=== PATIENT | male | born 1960 | race Caucasian/White ===

== ENCOUNTER 2018-09-23 11:29 | Outpatient (CLI) | payer BC, SELFPAY ==
[2018-09-23 13:19] LABS: Cholesterol 235 mg/dL (50-200); HDL Cholesterol 68 mg/dL (40-60); LDL CHOLESTEROL 144 mg/dL (<100); Triglyceride 110 mg/dL (30-150)
[2018-09-26 09:36] LABS: PSA, Screening 1.1 ng/ml (0-3.5)
== END 2018-09-23 11:49 ==
PROVIDERS: PCP Emergency Medicine; Visit Provider Emergency Medicine
DX: Z00.00 Encounter for general adult medical examination without abnormal findings (principal); Z12.5 Encounter for screening for malignant neoplasm of prostate; Z13.220 Encounter for screening for lipoid disorders
CPT/HCPCS: 36415; 80061; 83721; 84153

== ENCOUNTER 2018-10-04 10:45 | Outpatient (CLI) | payer BC, SELFPAY ==
--- NOTE | 2018-10-04 10:53 | DI.RAD_ITS ---
SYMPTOMS/DIAGNOSIS: BACK PAIN, SPONDYLOSIS LUMBOSACRAL JOINT W/O MYELOPATHY, M54.5, M47.817 THORACIC SPINE: Comparison is made with chest x-ray dated 7May14. There is no evidence of compression fractures. There are minimal endplate osteophytes in the mid and lower thoracic spine. There is no scoliosis. The heart size is normal. The visualized portions of the lungs are clear. IMPRESSION: Mild degenerative changes. LUMBAR SPINE: There is no evidence of compression fracture. There are small endplate osteophytes. The disc spaces are well maintained. No spondylolysis or spondylolisthesis is seen. IMPRESSION: Mild degenerative changes.
== END 2018-10-04 11:05 ==
PROVIDERS: PCP Emergency Medicine; Visit Provider Emergency Medicine
DX: M54.6 Pain in thoracic spine (principal); M54.5 Low back pain; M47.815 Spondylosis without myelopathy or radiculopathy, thoracolumbar region
CPT/HCPCS: 72072; 72110

== ENCOUNTER 2019-01-27 11:03 | Outpatient (CLI) | payer BC, SELFPAY ==
[2019-01-27 11:30] LABS: Abs Immature Grans 0.01 k/cumm (0.0-0.09); Absolute Basophil Count 0.03 k/cumm (0.0-0.2); Absolute Eosinophil Count 0.06 k/cumm (0.0-0.7); Absolute Lymphocyte Count 2.26 k/cumm (1.2-3.4); Absolute Monocyte Count 0.58 k/cumm (0.11-0.7); Absolute Neutrophil Count 6.62 k/cumm (1.2-6.7); Basophils % 0.3; Eosinophils % 0.6; HCT 44.4 % (40.0-50.0); HGB 14.8 g/dL (13.5-17.5); Immature Grans % 0.1; Lymphocytes % 23.6; Mean Corp. HGB Concentration 33.3 g/dL (32.0-36.0); Mean Corpuscular Hemoglobin 29.2 pg (27.0-33.0); Mean Corpuscular Volume 87.6 fL (80-95); Monocytes % 6.1; Neutrophils % 69.3; Platelet Count 359 x1000/uL (130-400); RBC 5.07 m/cumm (4.50-6.00); White Blood Cell Count 9.56 k/cumm (4.4-10.8)
[2019-01-27 12:12] LABS: ESR 7 MM/HR (1-20)
[2019-01-27 12:26] LABS: ALT 42 U/L (12-78); AST 49 U/L (15-37); Albumin 2.8 g/dL (3.4-5.0); Alkaline Phosphatase 70 U/L (46-116); Anion Gap 7.3 mmol/L (3-11); BUN 16 mg/dL (7-18); Bilirubin, Total 0.4 mg/dL (0.2-1.0); C-Reactive Protein 0.35 mg/dL (0.0-0.3); CO2 29.7 mmol/L (21.0-32.0); CREATININE 1.04 mg/dL (0.70-1.30); Calcium 9.1 mg/dL (8.5-10.1); Chloride 100 mmol/L (98-107); Glucose 107 mg/dL (70-100); Potassium 4.2 mmol/L (3.5-5.1); Sodium 137 mmol/L (136-145); Total Protein 7.3 g/dL (6.4-8.2)
[2019-01-30 09:17] LABS: Cyclic Citrullinated Peptide <2.5 U/mL (<5.0)
[2019-01-31 16:05] LABS: HLA-B27 Result Negative
== END 2019-01-27 11:23 ==
PROVIDERS: PCP Emergency Medicine; Visit Provider Emergency Medicine
DX: M89.9 Disorder of bone, unspecified (principal)
CPT/HCPCS: 36415; 80053; 85652; 86200; 86812; 85025; 86140

== ENCOUNTER 2019-01-27 13:26 | Outpatient (CLI) | payer BC, SELFPAY ==
--- NOTE | 2019-01-27 11:57 | DI.RAD_ITS ---
SYMPTOMS/DIAGNOSIS: PELVIC GIRDLE PAIN, M89.9 PELVIC AND BILATERAL HIPS: The hip joint spaces are well maintained. There is no significant acetabular spurring. The SI joints and pubic symphysis are unremarkable. A phlebolith is incidentally noted in the left lower pelvis. IMPRESSION: Negative pelvis and bilateral hips. SACROILIAC JOINTS: The SI joints appear normal bilaterally. There are no bony erosions or spurring. IMPRESSION: Negative SI joints.
== END 2019-01-27 13:46 ==
PROVIDERS: PCP Emergency Medicine; Visit Provider Emergency Medicine
DX: M89.9 Disorder of bone, unspecified (principal); R10.2 Pelvic and perineal pain; M53.3 Sacrococcygeal disorders, not elsewhere classified
CPT/HCPCS: 73521; 72202

== ENCOUNTER 2019-01-31 10:40 | Outpatient (CLI) | payer BC, SELFPAY ==
[2019-01-31 12:49] LABS: ALT 39 U/L (12-78); AST 30 U/L (15-37); Alkaline Phosphatase 72 U/L (46-116); Anion Gap 9.6 mmol/L (3-11); BUN 17 mg/dL (7-18); Bilirubin, Total 0.4 mg/dL (0.2-1.0); CO2 27.4 mmol/L (21.0-32.0); CREATININE 0.91 mg/dL (0.70-1.30); Calcium 9.2 mg/dL (8.5-10.1); Chloride 103 mmol/L (98-107); Glucose 102 mg/dL (70-100); Potassium 4.3 mmol/L (3.5-5.1); Sodium 140 mmol/L (136-145); Total Protein 7.1 g/dL (6.4-8.2)
[2019-01-31 13:26] LABS: Bilirubin Negative (Negative); Blood Negative (Negative); Clarity Clear; Glucose Negative (Negative); Ketones Trace mg/dL (Negative); Leukocyte Esterase Negative (Negative); Nitrite Negative (Negative); Specific Gravity >= 1.030 (1.005-1.025); Urobilinogen 0.2 EU/dL (Up TO 0.2); pH 6.5 (5-8)
[2019-01-31 14:00] LABS: Bacteria Negative HPF (Negative); C & S Indicated? No; Casts Negative LPF (Negative); Crystals Few Calcium Oxalate HPF (Negative); Epithelial Cells Negative HPF (Negative); Mucus Negative (Negative); RBC 0-2 (0-2); WBC 0-2 HPF (0-5)
[2019-01-31 15:04] LABS: ESR 11 MM/HR (1-20)
[2019-02-01 12:42] LABS: Albumin 60.8 % (55.8-66.1); Total Protein 6.9 g/dl (6.3-8.2)
== END 2019-01-31 11:00 ==
PROVIDERS: PCP Emergency Medicine; Visit Provider Emergency Medicine
DX: M54.5 Low back pain (principal); R07.1 Chest pain on breathing; R30.0 Dysuria
CPT/HCPCS: 36415; 80053; 85652; 81003; 81015; 84165

== ENCOUNTER 2019-09-29 07:00 | Outpatient (CLI) | payer BC, SELFPAY ==
[2019-09-29 12:48] LABS: Calculated LDL 174 mg/dL; Cholesterol 261 mg/dL (<200); HDL Cholesterol 65 mg/dL (40-60); Triglyceride 113 mg/dL (<150)
== END 2019-09-29 07:20 ==
PROVIDERS: PCP Emergency Medicine; Visit Provider Emergency Medicine
DX: E78.5 Hyperlipidemia, unspecified (principal)
CPT/HCPCS: 36415; 80061

== ENCOUNTER 2021-01-24 09:28 | Outpatient (REF) | payer BC, SELFPAY ==
[2021-01-24 14:14] LABS: Calculated LDL 130 mg/dL (<100); Cholesterol 210 mg/dL (<200); HDL Cholesterol 69 mg/dL (40-60); Triglyceride 55 mg/dL (<150)
== END 2021-01-24 09:29 | disposition home or self-care (01) ==
LOC: LBN 09:28
PROVIDERS: PCP Emergency Medicine; Visit Provider Emergency Medicine
DX: Z00.00 Encounter for general adult medical examination without abnormal findings (principal); Z13.220 Encounter for screening for lipoid disorders
CPT/HCPCS: 80061

== ENCOUNTER 2021-07-23 08:51 | Outpatient (CLI) | payer BC, SELFPAY ==
--- NOTE | 2021-07-23 | DI.RAD_ITS ---
Exam(s) XR CERVICAL SPINE COMP 4-5V EXAM: XR CERVICAL SPINE COMP 4-5V CLINICAL HISTORY: BILAT ARM PARESTHESIAS, INTERMITTENT TECHNIQUE: COMPARISON: No exams were available for comparison FINDINGS: Five views were obtained. There is narrowing of the intervertebral disc space at C5-6. Otherwise in tervertebral disc spaces are well maintained. There are endplate hypertrophic changes at C5-6 consistent with DJD. Mild bilateral facet hypertroph ic changes throughout the cervical region. No other significant bony abnormality seen in the cervical region. Oblique views are not ideally oriented to evaluate the neural foramina, however there is a question o f neural foraminal narrowing bilaterally at C5-6 and C6-7 levels. Please correlate clinically MR exa mination could be obtained if there is clinical suspicion of neural impingement. IMPRESSION: DJD as described above, predominantly at C5-6. RADIATION DOSE DELIVERED: Total DLP
== END 2021-07-23 09:11 ==
PROVIDERS: PCP Emergency Medicine; Visit Provider Chiropractor Orthopedic
DX: R20.2 Paresthesia of skin (principal); M47.812 Spondylosis without myelopathy or radiculopathy, cervical region
CPT/HCPCS: 72050

== ENCOUNTER 2023-06-10 10:48 | Outpatient (REF) | payer BC, SELFPAY ==
[2023-06-10 14:34] LABS: HCT 44.5 % (40.0-50.0); HGB 14.6 g/dL (13.5-17.5); MCH 28.6 pg (27.0-33.0); MCHC 32.8 % (32.0-36.0); MCV 87 fL (80-95); MPV 9.8 fL (8.0-11.0); Platelet Count 363 10^3/uL (130-400); RDW 11.9 % (11.8-14.1); RDW-SD 38.5 fL; WBC 7.39 10^3/uL (4.4-10.8)
[2023-06-10 14:59] LABS: ALT 37 U/L (16-63); AST 27 U/L (15-37); Albumin 4.1 g/dL (3.4-5.0); Alkaline Phosphatase 67 U/L (46-116); Anion Gap 8.2 mmol/L (3-11); BUN 12 mg/dL (7-18); Bilirubin, Total 0.5 mg/dL (0.2-1.0); CO2 27.8 mmol/L (21.0-32.0); CREATININE 0.9 mg/dL (0.70-1.30); Calcium 9.7 mg/dL (8.5-10.1); Calculated LDL 151 mg/dL (<100); Chloride 100 mmol/L (98-107); Cholesterol 237 mg/dL (<200); Estimated GFR 97.78 (mL/min/1.73m2); Glucose 103 mg/dL (74-106); HDL Cholesterol 77 mg/dL (40-60); Potassium 4.5 mmol/L (3.5-5.1); Sodium 136 mmol/L (136-145); Total Protein 7.8 g/dL (6.4-8.2); Triglyceride 49 mg/dL (<150)
== END 2023-06-10 10:49 | disposition home or self-care (01) ==
LOC: NCHCN 10:48
PROVIDERS: Visit Provider Family Medicine
DX: Z00.00 Encounter for general adult medical examination without abnormal findings (principal)
CPT/HCPCS: 80053; 80061; 85027

== ENCOUNTER 2024-06-26 16:49 | Outpatient (REF) | payer BC, SELFPAY | END 2024-06-26 16:50 | disposition home or self-care (01) | LOC: NCHCN 16:49 | PROVIDERS: PCP Family Medicine; Visit Provider Family Medicine | DX: L30.9 Dermatitis, unspecified (principal); B95.1 Streptococcus, group B, as the cause of diseases classified elsewhere; B96.89 Other specified bacterial agents as the cause of diseases classified elsewhere | CPT/HCPCS: 87077; 87186; 87070 ==

== ENCOUNTER 2024-07-11 14:50 | Outpatient (REF) | payer BC, SELFPAY ==
--- NOTE | 2024-07-11 11:20 | SKI_PTH ---
PATIENT: Edgardo Marroquin LOC: [facility] U#:[id number] AGE/SX: 63/M ROOM: RE07/11/[address]: Joon Pierce : 1960 BED: DIS: 07/11/2024 SPEC #: [id number] RECD: 07/11/24 15:11 STATUS: KERRIE REDarron #: [id number] GERI: 07/11/24 11:[address]: Joon Pierce DEPT: Surgical Specimen RECD BY: Emperatriz Iraheta Tissues: 1 - SKIN BIOPSY(SHAVE/PUNCH) Procedures: SKIN LEVEL 4 Comments: [id number]
== END 2024-07-11 14:51 | disposition home or self-care (01) ==
LOC: LBN 14:50
PROVIDERS: PCP Family Medicine; Visit Provider Family Medicine
DX: I82.811 Embolism and thrombosis of superficial veins of right lower extremity (principal)
CPT/HCPCS: 88305

== ENCOUNTER 2025-06-25 15:23 | Outpatient (REF) | payer BC, SELFPAY ==
[2025-06-25 16:05] LABS: Hemoglobin A1C 5.7 % (<5.7)
[2025-06-25 16:28] LABS: ALT 31 U/L (16-63); AST 23 U/L (15-37); Albumin 3.9 g/dL (3.4-5.0); Alkaline Phosphatase 57 U/L (46-116); Anion Gap 9.2 mmol/L (3-11); BUN 9 mg/dL (7-18); Bilirubin, Total 0.4 mg/dL (0.2-1.0); CO2 29.8 mmol/L (21.0-32.0); Calcium 8.9 mg/dL (8.5-10.1); Calculated LDL 144 mg/dL (<100); Chloride 103 mmol/L (98-107); Cholesterol 231 mg/dL (<200); Estimated GFR 96.57 (mL/min/1.73m2); Glucose 104 mg/dL (74-106); HDL Cholesterol 67 mg/dL (>or=40); Potassium 4.2 mmol/L (3.5-5.1); Sodium 142 mmol/L (136-145); Total Protein 7.0 g/dL (6.4-8.2); Triglyceride 103 mg/dL (<150)
== END 2025-06-25 15:24 | disposition home or self-care (01) ==
LOC: NCHCN 15:23
PROVIDERS: PCP Family Medicine; Visit Provider Family Medicine
DX: E66.9 Obesity, unspecified (principal); Z13.220 Encounter for screening for lipoid disorders
CPT/HCPCS: 80053; 80061; 83036